=== PATIENT | female | born 2000 | race Caucasian/White ===

== ENCOUNTER 2022-06-08 17:59 | Emergency (ER) | payer SELFPAY ==
[~2022-06-08] VITALS: Ht 160 cm; Wt 48.0 kg
[2022-06-08 18:07] VITALS: BP 95/53
[2022-06-08 23:32] LABS: CLARITY URINE CLEAR (CLEAR); COLOR URINE YELLOW (YELLOW); KETONES URINE 1+ (NEGATIVE); LEUKOCYTE ESTERASE URINE TRACE (NEGATIVE); NITRITE URINE NEGATIVE (NEGATIVE); OCCULT BLOOD URINE NEGATIVE (NEGATIVE); PH URINE 5.5 (4.5-8.0); PROTEIN URINE TRACE (NEGATIVE); SPECIFIC GRAVITY URINE 1.033 (1.005-1.030); UROBILINOGEN URINE 0.2 E.U./dL (0.2-1.0)
[2022-06-09] MEDS ORDERED: CEPH500C2 MT (02:20)
== END 2022-06-09 02:44 | disposition home or self-care (01) ==
LOC: ER 17:59
DX: O23.31 Infections of other parts of urinary tract in pregnancy, first trimester (principal); Z3A.11 11 weeks gestation of pregnancy
CPT/HCPCS: 76801; 81003; 81025; 99284